=== PATIENT | male | born 1975 | race Hispanic/Latino ===

== ENCOUNTER 2021-02-20 10:36 | Emergency (ER) | payer OTHER ==
[~2021-02-20] VITALS: Ht 160 cm; Wt 65.0 kg
[2021-02-20] MEDS ORDERED: NAPROXEN500 MG PO (11:51)
[2021-02-20 12:08] VITALS: BP 152/54
== END 2021-02-20 12:08 | disposition home or self-care (01) | DRG 605 ==
LOC: ED 10:36 → EDBD 11:02 → ED 11:02
PROC: 0HQ0XZZ Repair Scalp Skin, External Approach (ICD-10-PCS; principal; 2021-02-20)
DX: S01.01XA Laceration without foreign body of scalp, initial encounter (principal); S43.402A Unspecified sprain of left shoulder joint, initial encounter; V85.5XXA Driver of special construction vehicle injured in nontraffic accident, initial encounter; Y93.89 Activity, other specified; Y92.69 Other specified industrial and construction area as the place of occurrence of the external cause

== ENCOUNTER 2021-03-01 10:35 | Emergency (ER) | payer OTHER ==
[~2021-03-01] VITALS: Ht 160 cm; Wt 68.0 kg
[~2021-03-01 10:35] MED LIST: NAPROXEN500 MG PO
[2021-03-01 13:28] VITALS: BP 113/78
== END 2021-03-01 13:37 | disposition home or self-care (01) | DRG 950 ==
LOC: ED 10:35
DX: S01.91XD Laceration without foreign body of unspecified part of head, subsequent encounter (principal); X58.XXXD Exposure to other specified factors, subsequent encounter

== ENCOUNTER 2022-02-22 15:09 | Emergency (ER) | payer SELFPAY ==
[~2022-02-22] VITALS: Ht 160 cm; Wt 68.0 kg
[2022-02-22] VITALS (16 sets, daily range): BP systolic 143–207; BP diastolic 76–166
[2022-02-22] MEDS ORDERED: KEFLEX500 MG PO (17:05)
[2022-02-22] MEDS ORDERED: NAPROXEN500 MG PO (17:05)
[2022-02-22 17:11] LABS: BASO% 0.8 % (0-3); HEMATOCRIT 40.4 % (39.0-50.0); HEMOGLOBIN 14.1 g/dl (14.0-18.0); IMMATURE GRANULOCYTES 0.5 % (0.0-5.0); LYMPH% 23.3 % (15-41); MEAN CELL VOLUME 94.2 fL CALC (80.0-100.0); MEAN CORPUSCULAR HGB 32.9 pG CALC (26.0-32.0); MEAN CORPUSCULAR HGB CONC 34.9 g/dL CAL (32.0-36.0); MONO% 9.5 % (2-13); NEUT# 4.72 thou/uL (1.82-7.42); NEUT% 60.9 % (42-76); RED BLOOD COUNT 4.29 mill/uL (4.70-6.10); RED CELL DISTRI WIDTH 15.2 % (11.5-15.5)
[2022-02-22 17:30] LABS: ALBUMIN 4.2 g/dL (3.2-5.0); ALKALINE PHOSPHATASE 172 u/l (38-126); ANION GAP 12 (6-22 (CALC)); BILIRUBIN, TOTAL 0.9 mg/dL (0.0-1.4); BUN 10 mg/dL (9-20); BUN/CREATININE RATIO 23 (12-20 (CALC)); CARBON DIOXIDE 22 mmol/l (22-30); CHLORIDE 102 mmol/l (95-108); CREATININE 0.4 mg/dL (0.7-1.3); GFR FOR AFR.AMER. > 60 ML/MIN (>=60 (CALC)); GFR OTHER RACES > 60 ML/MIN (>=60 (CALC)); POTASSIUM 3.1 mmol/l (3.5-5.1); SGOT/AST 72 u/l (17-59); SODIUM 133 mmol/l (137-146); TOTAL PROTEIN 7.7 g/dL (6.3-8.2)
[2022-02-22 17:49] LABS: URINE BILIRUBIN - DIPSTICK NEGATIVE (NEGATIVE); URINE BLOOD DIPSTICK LARGE (NEGATIVE); URINE COLOR YELLOW; URINE GLUCOSE - DIPSTICK >=1000 mg/dL (NEGATIVE); URINE KETONE NEGATIVE (NEGATIVE); URINE LEUK ESTERASE NEGATIVE (NEGATIVE); URINE NITRITE - DIPSTICK NEGATIVE (Negative); URINE PROTEIN - DIPSTICK NEGATIVE (NEG-TRACE); URINE SPECIFIC GRAVITY 1.025
[2022-02-22] MEDS ORDERED: METFORMIN HCL500 M1 PO (17:57)
[2022-02-22 18:02] LABS: URINE WBC 0-2 WBC/hpf (0-5)
== END 2022-02-22 19:08 | disposition home or self-care (01) | DRG 728 ==
LOC: ED 15:09
PROVIDERS: Nurse Practitioner
DX: N47.2 Paraphimosis (principal); N48.22 Cellulitis of corpus cavernosum and penis; R73.9 Hyperglycemia, unspecified